=== PATIENT | male | born 1980 | race Hispanic/Latino ===

== ENCOUNTER 2017-03-18 18:40 | Emergency (ER) | payer SELFPAY ==
[2017-03-18] MEDS ORDERED: Oxymetazoline HCl 0.05% ( 15 ML ) ONE (20:17)
== END 2017-03-18 20:33 | disposition home or self-care (01) ==
LOC: ERS 18:40
DX: H65.90 Unspecified nonsuppurative otitis media, unspecified ear (principal); F17.210 Nicotine dependence, cigarettes, uncomplicated
CPT/HCPCS: 99282

== ENCOUNTER 2017-12-24 21:37 | Emergency (ER) | payer SELFPAY | END 2017-12-24 22:49 | disposition home or self-care (01) | LOC: SCSER 21:37 | DX: L73.9 Follicular disorder, unspecified (principal); F17.210 Nicotine dependence, cigarettes, uncomplicated | CPT/HCPCS: 99283 ==

== ENCOUNTER 2018-01-11 08:38 | Emergency (ER) | payer SELFPAY | END 2018-01-11 09:12 | disposition home or self-care (01) | LOC: SCSER 08:38 | DX: B35.6 Tinea cruris (principal); F17.210 Nicotine dependence, cigarettes, uncomplicated | CPT/HCPCS: 99282 ==